=== PATIENT | male | born 1990 | race Caucasian/White ===

== ENCOUNTER 2021-06-30 17:20 | Emergency (ER) | payer OTHER ==
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
[2021-06-30 21:23] VITALS: BP 144/87; TEMP 98.1; O2SAT 100
== END 2021-06-30 20:19 | disposition left against medical advice (07) ==
LOC: ER 17:20
DX: Z53.21 Procedure and treatment not carried out due to patient leaving prior to being seen by health care provider (principal)
CPT/HCPCS: 99281